=== PATIENT | female | born 1995 | race Two or more races ===

== ENCOUNTER 2023-05-25 15:42 | Emergency (ER) | payer OTHER ==
[~2023-05-25] VITALS: Ht 162.6 cm; Wt 86.4 kg
[2023-05-25 15:46] VITALS: TEMP 98.2
[2023-05-25 16:07] VITALS: BP 142/90; PULSE 104; RESP 18
[2023-05-25] MEDS ORDERED: PENI500T2 PO (16:31)
== END 2023-05-25 16:36 | disposition home or self-care (01) ==
LOC: EMS 15:45
DX: K12.1 Other forms of stomatitis (principal); K12.30 Oral mucositis (ulcerative), unspecified
CPT/HCPCS: 99283